=== PATIENT | female | born 1985 | race Caucasian/White ===

== ENCOUNTER 2020-02-16 13:42 | Emergency (ER) | payer OTHER ==
[~2020-02-16] VITALS: Ht 180.3 cm; Wt 100.0 kg
[2020-02-16] MEDS ORDERED: SODIUM CHLORIDE 0.9% 1,000 ML IV ONE (15:00)
[2020-02-16] MEDS ORDERED: LORazepam 1 MG TABLET PO ONE (15:45)
[2020-02-16 15:49] LABS: BASOPHILS % (AUTO) 0.2 % (0.0-2.0); EOSINOPHILS % (AUTO) 0.6 % (1.0-6.0); HEMATOCRIT 48.2 % (36-46); HEMOGLOBIN 16.5 g/dL (12.0-16.0); LYMPHOCYTES # (AUTO) 3.1 K/uL (1.0-4.8); LYMPHOCYTES % (AUTO) 34.7 % (22.0-44.0); MEAN CORPUSCULAR HEMOGLOBIN 31.3 pg (26.0-34.0); MEAN CORPUSCULAR HGB CONC 34.3 G/dL (31.0-37.0); MEAN CORPUSCULAR VOLUME 91 fL (80-100); MONOCYTES # (AUTO) 0.6 K/uL (0.1-1.0); MONOCYTES % (AUTO) 6.6 % (2.0-9.0); NEUTROPHILS # (AUTO) 5.1 K/uL (1.8-7.7); NEUTROPHILS % (AUTO) 57.9 % (40.0-70.0); PLATELET COUNT (AUTO) 314 K/uL (150-450); RED BLOOD CELL COUNT(AUTO) 5.29 MIL/uL (4.00-5.20); RED CELL DISTRIBUTION WIDTH 14.8 % (11.5-14.5)
[2020-02-16 15:49] LABS: AMPHET/METH SCREEN,URINE NEGATIVE (NEGATIVE); BARBITURATE SCREEN, URINE NEGATIVE (NEGATIVE); BENZODIAZEPINES SCREEN,URINE POSITIVE (NEGATIVE); CANNABINOID SCREEN,URINE NEGATIVE (NEGATIVE); COCAINE SCREEN,URINE NEGATIVE (NEGATIVE); METHADONE SCREEN, URINE NEGATIVE (NEGATIVE); OPIATE SCREEN,URINE NEGATIVE (NEGATIVE)
[2020-02-16 15:50] LABS: APPEARANCE,URINE CLOUDY (CLEAR); BILIRUBIN,URINE NEGATIVE (NEGATIVE); GLUCOSE, URINE (UA) NEGATIVE (NEGATIVE); KETONES,URINE NEGATIVE (NEGATIVE); LEUKOCYTE ESTERASE ,URINE NEGATIVE (NEGATIVE); NITRATE,URINE NEGATIVE (NEGATIVE); OCCULT BLOOD,URINE SMALL (NEGATIVE); PH,URINE 6.5 (5.0-8.0); PROTEIN,URINE NEGATIVE (NEGATIVE)
[2020-02-16 15:59] LABS: RBC,URINE 0-2 /HPF (0-2); WBC,URINE None Seen /HPF (0-5)
[2020-02-16 16:00] LABS: AMORPHOUS SEDIMENT,UR Few /LPF (None Seen); BACTERIA,URINE Moderate /HPF (None Seen); SQUAMOUS EPITHELIAL CELL,UR Moderate /LPF (None Seen)
[2020-02-16 16:04] LABS: PHENCYCLIDINE SCREEN,URINE NEGATIVE (NEGATIVE)
[2020-02-16 16:12] LABS: ALANINE AMINOTRANSFERASE 29 U/L (12-78); ALBUMIN 3.7 g/dL (3.4-5.0); ALKALINE PHOSPHATASE 82 U/L (46-116); ANION GAP 10 mmol/L (8-16); ASPARTATE AMINOTRANSFERASE 37 U/L (15-37); BILIRUBIN,TOTAL 0.6 mg/dL (0.1-1.0); CALCIUM, TOTAL 8.4 mg/dL (8.8-10.5); CARBON DIOXIDE 29 mmol/L (22-29); CHLORIDE 107 mmol/L (98-107); CREATININE 0.81 mg/dL (0.60-1.30); GLOMERULAR FILTR. RATE CALC > 60 mL/min (>60); GLUCOSE,RANDOM 101 mg/dL (70-110); SODIUM SERUM 146 mmol/L (136-145); TOTAL PROTEIN, SERUM 7.7 g/dL (6.4-8.2); UREA NITROGEN, BLOOD 14 mg/dL (7-18)
[2020-02-16 16:15] LABS: POTASSIUM 2.9 mmol/L (3.5-5.1)
[2020-02-16] MEDS ORDERED: MAGNESIUM SULFATE 2 GM, MVI, ADULT NO.1 WITH VIT K 10 ML, THIAMINE 100 MG, FOLIC ACID 1... IV ONE ×5 (16:15)
[2020-02-16] MEDS ORDERED: POTASSIUM CHLORIDE 20 MEQ ER TABLET PO ONE (16:30)
[2020-02-16] MEDS ORDERED: ONDANSETRON HCL 4 MG/2 ML VIAL IVP ONE (16:30)
[2020-02-16 19:11] VITALS: BP 133/69
== END 2020-02-16 20:05 | disposition home or self-care (01) ==
LOC: EMS 13:47
DX: F10.239 Alcohol dependence with withdrawal, unspecified (principal); Z88.0 Allergy status to penicillin; Y90.8 Blood alcohol level of 240 mg/100 ml or more
CPT/HCPCS: 36415; 80053; 80307; 81001; 85025; 87086; 93005; 96365; 96366; 96375; 99284; G0480; J2405; J3411; J3475; J3490 ×2; J7030

== ENCOUNTER 2020-02-26 00:30 | Emergency (ER) | payer OTHER ==
[~2020-02-26] VITALS: Ht 182.9 cm; Wt 104.5 kg
[2020-02-26 00:50] VITALS: BP 132/79
== END 2020-02-26 02:13 | disposition home or self-care (01) ==
LOC: EMS 00:31
DX: F10.239 Alcohol dependence with withdrawal, unspecified (principal); I10 Essential (primary) hypertension; F17.210 Nicotine dependence, cigarettes, uncomplicated; Z88.0 Allergy status to penicillin
CPT/HCPCS: 99406

== ENCOUNTER 2020-03-05 20:48 | Inpatient (IN) | payer MEDICAID, OTHER ==
[~2020-03-05] VITALS: Ht 182.9 cm; Wt 106.5 kg
[2020-03-05 22:13] LABS: BASOPHILS % (AUTO) 0.5 % (0.0-2.0); EOSINOPHILS % (AUTO) 0.3 % (1.0-6.0); HEMATOCRIT 50.5 % (36-46); LYMPHOCYTES # (AUTO) 2.6 K/uL (1.0-4.8); LYMPHOCYTES % (AUTO) 49.6 % (22.0-44.0); MEAN CORPUSCULAR HEMOGLOBIN 30.6 pg (26.0-34.0); MEAN CORPUSCULAR HGB CONC 33.6 G/dL (31.0-37.0); MEAN CORPUSCULAR VOLUME 91 fL (80-100); MONOCYTES # (AUTO) 0.4 K/uL (0.1-1.0); MONOCYTES % (AUTO) 6.8 % (2.0-9.0); NEUTROPHILS # (AUTO) 2.2 K/uL (1.8-7.7); NEUTROPHILS % (AUTO) 42.8 % (40.0-70.0); PLATELET COUNT (AUTO) 159 K/uL (150-450); RED BLOOD CELL COUNT(AUTO) 5.55 MIL/uL (4.00-5.20); RED CELL DISTRIBUTION WIDTH 14.8 % (11.5-14.5)
[2020-03-05 22:31] LABS: ANION GAP 5 mmol/L (8-16); CALCIUM, TOTAL 8.5 mg/dL (8.8-10.5); CARBON DIOXIDE 32 mmol/L (22-29); CHLORIDE 103 mmol/L (98-107); CREATININE 1.02 mg/dL (0.60-1.30); GLOMERULAR FILTR. RATE CALC > 60 mL/min (>60); GLUCOSE,RANDOM 97 mg/dL (70-110); POTASSIUM 3.7 mmol/L (3.5-5.1); SODIUM SERUM 140 mmol/L (136-145); UREA NITROGEN, BLOOD 12 mg/dL (7-18)
[2020-03-05 22:39] LABS: AMPHET/METH SCREEN,URINE NEGATIVE (NEGATIVE); BARBITURATE SCREEN, URINE NEGATIVE (NEGATIVE); BENZODIAZEPINES SCREEN,URINE POSITIVE (NEGATIVE); CANNABINOID SCREEN,URINE NEGATIVE (NEGATIVE); COCAINE SCREEN,URINE NEGATIVE (NEGATIVE); METHADONE SCREEN, URINE NEGATIVE (NEGATIVE); OPIATE SCREEN,URINE NEGATIVE (NEGATIVE); PHENCYCLIDINE SCREEN,URINE NEGATIVE (NEGATIVE)
[2020-03-05 22:41] LABS: ALANINE AMINOTRANSFERASE 135 U/L (12-78); ALBUMIN 3.8 g/dL (3.4-5.0); ALKALINE PHOSPHATASE 163 U/L (46-116); ASPARTATE AMINOTRANSFERASE 171 U/L (15-37); BILIRUBIN,TOTAL 1.3 mg/dL (0.1-1.0); HCG,QUANTITATIVE < 1 mIU/mL (0-6); TOTAL PROTEIN, SERUM 7.8 g/dL (6.4-8.2)
[2020-03-05] MEDS ORDERED: QUEtiapine FUMARATE 100 MG TABLET PO PRN (23:15)
[2020-03-05] MEDS ORDERED: ZOLPIDEM TARTRATE 10 MG TABLET PO PRN (23:15)
[2020-03-05 23:44] LABS: APPEARANCE,URINE CLEAR (CLEAR); BILIRUBIN,URINE NEGATIVE (NEGATIVE); GLUCOSE, URINE (UA) NEGATIVE (NEGATIVE); KETONES,URINE NEGATIVE (NEGATIVE); LEUKOCYTE ESTERASE ,URINE NEGATIVE (NEGATIVE); NITRATE,URINE NEGATIVE (NEGATIVE); OCCULT BLOOD,URINE NEGATIVE (NEGATIVE); PROTEIN,URINE NEGATIVE (NEGATIVE); UROBILINOGEN,URINE 0.2 mg/dL (<=1.0)
[2020-03-06] VITALS (8 sets, daily range): BP systolic 136–144; BP diastolic 75–96
[2020-03-06] MEDS: LORazepam 2 MG TABLET PO PRN ×2 (00:05→06:28)
[2020-03-06] MEDS ORDERED: GuaiFENesin/D-METHORPHAN [SUGAR-FREE] 200-20MG/10 ML SYRUP UDCUP PO PRN (08:15)
[2020-03-06] MEDS ORDERED: ONDANSETRON HCL 4 MG TABLET PO PRN (08:15)
[2020-03-06] MEDS ORDERED: ACETAMINOPHEN 325 MG TABLET PO PRN (08:15)
[2020-03-06] MEDS ORDERED: MAGNESIUM HYDROXIDE SUSPENSION 30 ML UDCUP PO PRN (08:15)
[2020-03-06] MEDS ORDERED: IBUPROFEN 400 MG TABLET PO PRN (08:15)
[2020-03-06] MEDS ORDERED: DOCUSATE SODIUM 100 MG CAPSULE PO PRN (08:15)
[2020-03-06] MEDS ORDERED: ALBUTEROL SULFATE HFA 90 MCG/PUFF 8 GM INHALER IH PRN (08:15)
[2020-03-06] MEDS ORDERED: NICOTINE 14 MG/24 HOUR PATCH TD PRN (08:15)
[2020-03-06] MEDS ORDERED: CloNIDine HCL 0.1 MG TABLET PO PRN (08:15)
[2020-03-06] MEDS ORDERED: PETROLATUM,WHITE 28 GM JELLY TP PRN (08:15)
[2020-03-06] MEDS ORDERED: MAG HYDROX/AL HYDROX/SIMETH ES 30 ML SUSPENSION UDCUP PO PRN (08:15)
[2020-03-06] MEDS ORDERED: LOPERAMIDE HCL 2 MG CAPSULE PO PRN (08:15)
[2020-03-06] MEDS: MULTIVITAMINS, THERAPEUTIC TABLET PO SCH (08:44)
[2020-03-06] MEDS: NICOTINE 14 MG/24 HOUR PATCH TD SCH (08:45)
[2020-03-06] MEDS: FOLIC ACID 1 MG TABLET PO SCH (08:45)
[2020-03-06] MEDS: LORazepam 2 MG TABLET PO SCH ×4 (08:45→20:30)
[2020-03-06] MEDS: THIAMINE 100 MG TABLET PO SCH (08:45)
[2020-03-06 08:49] LABS: CHOL/HDL RATIO 4.1 (3.9-5.7); CHOLESTEROL 114 mg/dL (131-200); HDL CHOLESTEROL 28 mg/dL (40-60); TRIGLYCERIDES 579 mg/dL (15-150)
[2020-03-06] MEDS: SERTRALINE HCL 50 MG TABLET PO SCH (16:50)
[2020-03-06] MEDS: SIMVASTATIN 20 MG TABLET PO SCH (20:30)
[2020-03-06] MEDS ORDERED: CYCLOBENZAPRINE HCL 10 MG TABLET PO PRN (22:00)
[2020-03-07 01:00] VITALS: BP 136/78
[2020-03-07] MEDS: LORazepam 2 MG TABLET PO PRN (01:54)
[2020-03-07 05:00] VITALS: BP 135/80
[2020-03-07 08:12] LABS: ANION GAP 7 mmol/L (8-16); CALCIUM, TOTAL 8.1 mg/dL (8.8-10.5); CARBON DIOXIDE 28 mmol/L (22-29); CHLORIDE 104 mmol/L (98-107); CREATININE 0.82 mg/dL (0.60-1.30); GLOMERULAR FILTR. RATE CALC > 60 mL/min (>60); GLUCOSE,RANDOM 122 mg/dL (70-110); SODIUM SERUM 139 mmol/L (136-145); UREA NITROGEN, BLOOD 8 mg/dL (7-18)
[2020-03-07 08:17] LABS: POTASSIUM 2.9 mmol/L (3.5-5.1)
[2020-03-07 08:23] VITALS: BP_SYST 132; BP_DIAS 82; BP_DIAS 83
[2020-03-07] MEDS ORDERED: POTASSIUM CHLORIDE 20 MEQ ER TABLET PO ONE (08:30)
[2020-03-07] MEDS: SERTRALINE HCL 50 MG TABLET PO SCH (08:53)
[2020-03-07] MEDS: FOLIC ACID 1 MG TABLET PO SCH (08:53)
[2020-03-07] MEDS: LORazepam 2 MG TABLET PO SCH ×4 (08:53→20:11)
[2020-03-07] MEDS: MULTIVITAMINS, THERAPEUTIC TABLET PO SCH (08:54)
[2020-03-07] MEDS: NICOTINE 14 MG/24 HOUR PATCH TD SCH (08:54)
[2020-03-07] MEDS: THIAMINE 100 MG TABLET PO SCH (08:54)
[2020-03-07 16:10] VITALS: BP 132/89
[2020-03-07] MEDS: SIMVASTATIN 20 MG TABLET PO SCH (20:11)
[2020-03-07 21:15] VITALS: BP 132/89
[2020-03-08 00:50] VITALS: BP 140/89
[2020-03-08] MEDS: LORazepam 2 MG TABLET PO PRN (03:07)
[2020-03-08 08:30] VITALS: BP 110/71
[2020-03-08] MEDS: LORazepam 1 MG TABLET PO SCH ×4 (08:43→20:15)
[2020-03-08] MEDS: MULTIVITAMINS, THERAPEUTIC TABLET PO SCH (08:43)
[2020-03-08] MEDS: FOLIC ACID 1 MG TABLET PO SCH (08:43)
[2020-03-08] MEDS: THIAMINE 100 MG TABLET PO SCH (08:44)
[2020-03-08] MEDS: NICOTINE 21 MG/24 HOUR PATCH TD SCH (08:49)
[2020-03-08 09:00] VITALS: BP 110/71
[2020-03-08] MEDS ORDERED: POTASSIUM CHLORIDE 20 MEQ ER TABLET PO ONE (09:00)
[2020-03-08] MEDS: SERTRALINE HCL 50 MG TABLET PO SCH (09:56)
[2020-03-08 18:19] VITALS: BP 118/78
[2020-03-08] MEDS: SIMVASTATIN 20 MG TABLET PO SCH (20:15)
[2020-03-09 00:32] VITALS: BP 125/76
[2020-03-09] MEDS: LORazepam 1 MG TABLET PO PRN ×2 (00:45→04:32)
[2020-03-09 01:05] VITALS: BP 125/76
[2020-03-09] MEDS ORDERED: LORazepam 1 MG TABLET PO PRN (07:00)
[2020-03-09] MEDS: NICOTINE 21 MG/24 HOUR PATCH TD SCH (09:51)
[2020-03-09] MEDS: SERTRALINE HCL 50 MG TABLET PO SCH (09:51)
[2020-03-09] MEDS: MULTIVITAMINS, THERAPEUTIC TABLET PO SCH (09:52)
[2020-03-09] MEDS: FOLIC ACID 1 MG TABLET PO SCH (09:52)
[2020-03-09] MEDS: THIAMINE 100 MG TABLET PO SCH (09:52)
[2020-03-09] MEDS ORDERED: SIMV-260 PO (10:34)
[2020-03-09] MEDS ORDERED: SERT100T12 PO (10:34)
== END 2020-03-09 12:50 | disposition home or self-care (01) | DRG 885 ==
LOC: EMS 20:50 → B3A 23:02
DX: F33.2 Major depressive disorder, recurrent severe without psychotic features (principal); R45.851 Suicidal ideations; Z59.0 Homelessness; Z88.0 Allergy status to penicillin; F10.20 Alcohol dependence, uncomplicated; E78.5 Hyperlipidemia, unspecified; I10 Essential (primary) hypertension; F19.10 Other psychoactive substance abuse, uncomplicated; R74.0 Nonspecific elevation of levels of transaminase and lactic acid dehydrogenase [LDH]; F41.9 Anxiety disorder, unspecified; F17.200 Nicotine dependence, unspecified, uncomplicated; E87.6 Hypokalemia; Z79.899 Other long term (current) drug therapy; Y90.7 Blood alcohol level of 200-239 mg/100 ml; Z91.5 Personal history of self-harm
CPT/HCPCS: 84132; G0480

== ENCOUNTER 2023-02-06 18:39 | Emergency (ER) | payer MEDICAID, OTHER ==
[~2023-02-06] VITALS: Ht 182.9 cm; Wt 109.0 kg
[2023-02-06 18:39] VITALS: TEMP 98.2
[~2023-02-06 18:39] MED LIST: SERT-162 PO; SIMV-260 PO
[2023-02-06] MEDS ORDERED: BUSP15 PO (18:45)
[2023-02-06] MEDS ORDERED: CITA-144 PO (18:45)
[2023-02-06] MEDS ORDERED: ONDA-104 PO (18:45)
[2023-02-06] MEDS ORDERED: MIRT-89 PO (18:45)
[2023-02-06] MEDS ORDERED: GABA-1201 PO (18:45)
[2023-02-06 20:12] LABS: BASOPHILS % (AUTO) 0.5 % (0.0-2.0); EOSINOPHILS % (AUTO) 0.2 % (1.0-6.0); HEMATOCRIT 46.9 % (36-46); HEMOGLOBIN 15.7 g/dL (12.0-16.0); LYMPHOCYTES # (AUTO) 2.3 K/uL (1.0-4.8); LYMPHOCYTES % (AUTO) 38.9 % (22.0-44.0); MEAN CORPUSCULAR HEMOGLOBIN 30.5 pg (26.0-34.0); MEAN CORPUSCULAR HGB CONC 33.5 G/dL (31.0-37.0); MEAN CORPUSCULAR VOLUME 91 fL (80-100); MONOCYTES # (AUTO) 0.3 K/uL (0.1-1.0); MONOCYTES % (AUTO) 5.4 % (2.0-9.0); NEUTROPHILS # (AUTO) 3.2 K/uL (1.8-7.7); PLATELET COUNT (AUTO) 219 K/uL (150-450); RED BLOOD CELL COUNT(AUTO) 5.15 MIL/uL (4.00-5.20); RED CELL DISTRIBUTION WIDTH 13.8 % (11.5-14.5)
[2023-02-06 20:25] LABS: ANION GAP 12 mmol/L (8-16); CALCIUM, TOTAL 8.5 mg/dL (8.8-10.5); CARBON DIOXIDE 27 mmol/L (22-29); CHLORIDE 104 mmol/L (98-107); CREATININE 0.79 mg/dL (0.60-1.30); GLOMERULAR FILTR. RATE CALC > 60 mL/min (>60); GLUCOSE,RANDOM 97 mg/dL (70-110); POTASSIUM 3.8 mmol/L (3.5-5.1); SODIUM SERUM 143 mmol/L (136-145)
[2023-02-06 20:32] LABS: ALANINE AMINOTRANSFERASE 40 U/L (12-78); ALBUMIN 4.2 g/dL (3.4-5.0); ALKALINE PHOSPHATASE 96 U/L (46-116); ASPARTATE AMINOTRANSFERASE 56 U/L (15-37); BILIRUBIN,TOTAL 0.6 mg/dL (0.1-1.0); TOTAL PROTEIN, SERUM 8.1 g/dL (6.4-8.2)
[2023-02-06 20:40] VITALS: BP 143/103; PULSE 115; RESP 16
[2023-02-06 21:17] LABS: COVID AG,FIA SOURCE NASOPHARYNGEAL
[2023-02-06 21:26] LABS: AMPHET/METH SCREEN,URINE NEGATIVE (NEGATIVE); BARBITURATE SCREEN, URINE NEGATIVE (NEGATIVE); BENZODIAZEPINES SCREEN,URINE POSITIVE (NEGATIVE); CANNABINOID SCREEN,URINE POSITIVE (NEGATIVE); COCAINE SCREEN,URINE NEGATIVE (NEGATIVE); METHADONE SCREEN, URINE NEGATIVE (NEGATIVE); OPIATE SCREEN,URINE NEGATIVE (NEGATIVE); PHENCYCLIDINE SCREEN,URINE NEGATIVE (NEGATIVE)
== END 2023-02-06 22:30 | disposition home or self-care (01) ==
LOC: EMS 18:46
DX: F32.9 Major depressive disorder, single episode, unspecified (principal); R45.851 Suicidal ideations; F10.229 Alcohol dependence with intoxication, unspecified; F41.9 Anxiety disorder, unspecified; E78.00 Pure hypercholesterolemia, unspecified; I10 Essential (primary) hypertension; F17.210 Nicotine dependence, cigarettes, uncomplicated; Z88.0 Allergy status to penicillin; Z20.822 Contact with and (suspected) exposure to COVID-19; Y90.9 Presence of alcohol in blood, level not specified
CPT/HCPCS: 99284; 87426; 80053; 84703; 85025; 36415; 80307; G0480; 99285

== ENCOUNTER 2023-02-07 14:00 | Inpatient (IN) | payer MEDICAID ==
[~2023-02-07] VITALS: Ht 180.3 cm; Wt 107.5 kg
[~2023-02-07 14:00] MED LIST changes: +BUSP15 PO; +CITA-144 PO; +GABA-1201 PO; +MIRT-89 PO; +ONDA-104 PO
[2023-02-07] MEDS ORDERED: HALOPERIDOL 5 MG TABLET PO PRN (16:15)
[2023-02-07 17:30] LABS: GLUCOMETER DEV NAME(LOC) POC.BV
[2023-02-07 17:40] VITALS: BP 142/96; PULSE 102; RESP 18; TEMP 97.9; O2SAT 95
[2023-02-07 18:00] VITALS: BP 118/66; PULSE 101; RESP 18; TEMP 98; O2SAT 97
[2023-02-07] MEDS ORDERED: ACETAMINOPHEN 325 MG TABLET PO PRN (18:00)
[2023-02-07] MEDS ORDERED: ONDANSETRON HCL 4 MG TABLET PO PRN (18:00)
[2023-02-07] MEDS ORDERED: ALBUTEROL SULFATE HFA 90 MCG/PUFF 8 GM INHALER IH PRN (18:00)
[2023-02-07] MEDS ORDERED: OMEPRAZOLE 20 MG CAPSULE PO PRN (18:00)
[2023-02-07] MEDS ORDERED: MAGNESIUM HYDROXIDE SUSPENSION 30 ML UDCUP PO PRN (18:00)
[2023-02-07] MEDS ORDERED: LOPERAMIDE HCL 2 MG CAPSULE PO PRN (18:00)
[2023-02-07] MEDS ORDERED: BACITRACIN 28 GM OINTMENT TP PRN (18:00)
[2023-02-07] MEDS ORDERED: IBUPROFEN 600 MG TABLET PO PRN (18:00)
[2023-02-07] MEDS ORDERED: PETROLATUM,WHITE 28 GM JELLY TP PRN (18:00)
[2023-02-07] MEDS ORDERED: BENZOCAINE/MENTHOL LOZENGE PO PRN (18:00)
[2023-02-07] MEDS ORDERED: MAG HYDROX/AL HYDROX/SIMETH ES 30 ML SUSPENSION UDCUP PO PRN (18:00)
[2023-02-07] MEDS ORDERED: CloNIDine HCL 0.1 MG TABLET PO PRN (18:00)
[2023-02-07] MEDS ORDERED: DOCUSATE SODIUM 100 MG CAPSULE PO PRN (18:00)
[2023-02-07 19:30] VITALS: BP 138/85; PULSE 100; RESP 18; TEMP 98.1; O2SAT 97
[2023-02-07 20:35] VITALS: BP 126/76; PULSE 99; RESP 17; TEMP 98; O2SAT 96
[2023-02-07] MEDS: ZOLPIDEM TARTRATE 10 MG TABLET PO PRN (21:46)
[2023-02-07] MEDS: LORazepam 2 MG TABLET PO PRN (21:46)
[2023-02-07 22:23] VITALS: BP 138/85; PULSE 100; RESP 18; TEMP 98.1; O2SAT 97
[2023-02-07 23:23] VITALS: BP 109/69; PULSE 98; RESP 18; TEMP 97.8; O2SAT 95
[2023-02-08] VITALS (10 sets, daily range): BP systolic 120–156; BP diastolic 72–92; PULSE 87–104; RESP 18; TEMP 97–98.2; O2SAT 96–99
[2023-02-08] MEDS: LORazepam 2 MG TABLET PO PRN (05:45)
[2023-02-08 07:36] LABS: BASOPHILS % (AUTO) 0.9 % (0.0-2.0); EOSINOPHILS % (AUTO) 0.4 % (1.0-6.0); HEMATOCRIT 42.2 % (36-46); HEMOGLOBIN 14.7 g/dL (12.0-16.0); LYMPHOCYTES # (AUTO) 1.2 K/uL (1.0-4.8); LYMPHOCYTES % (AUTO) 24.2 % (22.0-44.0); MEAN CORPUSCULAR HEMOGLOBIN 31.4 pg (26.0-34.0); MEAN CORPUSCULAR HGB CONC 34.7 G/dL (31.0-37.0); MEAN CORPUSCULAR VOLUME 91 fL (80-100); MONOCYTES # (AUTO) 0.4 K/uL (0.1-1.0); MONOCYTES % (AUTO) 8.5 % (2.0-9.0); NEUTROPHILS # (AUTO) 3.4 K/uL (1.8-7.7); PLATELET COUNT (AUTO) 175 K/uL (150-450); RED BLOOD CELL COUNT(AUTO) 4.66 MIL/uL (4.00-5.20); RED CELL DISTRIBUTION WIDTH 13.9 % (11.5-14.5)
[2023-02-08 08:03] LABS: ALANINE AMINOTRANSFERASE 35 U/L (12-78); ALBUMIN 3.7 g/dL (3.4-5.0); ALKALINE PHOSPHATASE 93 U/L (46-116); ANION GAP 11 mmol/L (8-16); ASPARTATE AMINOTRANSFERASE 47 U/L (15-37); BILIRUBIN,TOTAL 1.3 mg/dL (0.1-1.0); CARBON DIOXIDE 26 mmol/L (22-29); CHLORIDE 100 mmol/L (98-107); CHOL/HDL RATIO 1.6 (3.9-5.7); CHOLESTEROL 231 mg/dL (131-200); FREE T4 (FREE THYROXINE) 0.77 ng/dL (0.76-1.46); GLOMERULAR FILTR. RATE CALC > 60 mL/min (>60); GLUCOSE,RANDOM 101 mg/dL (70-110); HCG,QUANTITATIVE < 1 mIU/mL (0-6); HDL CHOLESTEROL 144 mg/dL (40-60); LDL CHOL (CALC.) 69 mg/dL (0-130); POTASSIUM 3.3 mmol/L (3.5-5.1); SODIUM SERUM 137 mmol/L (136-145); THYROID STIMULATING HORMONE 2.36 uIU/mL (0.36-3.74); TOTAL PROTEIN, SERUM 7.4 g/dL (6.4-8.2); TRIGLYCERIDES 88 mg/dL (15-150)
[2023-02-08] MEDS: CITALOPRAM HYDROBROMIDE 20 MG TABLET PO SCH (13:27)
[2023-02-08] MEDS: BusPIRone HCL 15 MG TABLET PO SCH (13:27)
[2023-02-08] MEDS: GABAPENTIN 400 MG CAPSULE PO SCH ×3 (13:27→20:32)
[2023-02-08] MEDS ORDERED: MIRTAZAPINE 15 MG TABLET PO SCH (21:00)
[2023-02-09] MEDS: ZOLPIDEM TARTRATE 10 MG TABLET PO PRN (00:19)
[2023-02-09 07:00] VITALS: BP 140/70; PULSE 95; RESP 17; TEMP 97.7; O2SAT 98
[2023-02-09 08:16] VITALS: BP 140/73; PULSE 76; RESP 18; TEMP 97.7; O2SAT 96
[2023-02-09] MEDS: CITALOPRAM HYDROBROMIDE 20 MG TABLET PO SCH (08:33)
[2023-02-09] MEDS: BusPIRone HCL 15 MG TABLET PO SCH (08:33)
[2023-02-09] MEDS: GABAPENTIN 400 MG CAPSULE PO SCH ×2 (08:33→12:30)
== END 2023-02-09 17:38 | disposition home or self-care (01) | DRG 753 ==
LOC: B2S 14:00
PROVIDERS: ADMIT Psychiatry & Neurology Psychiatry; ATTEND Psychiatry & Neurology Psychiatry
DX: F31.9 Bipolar disorder, unspecified (principal); E87.6 Hypokalemia; F41.9 Anxiety disorder, unspecified; G47.00 Insomnia, unspecified; Z20.822 Contact with and (suspected) exposure to COVID-19; F17.210 Nicotine dependence, cigarettes, uncomplicated; K59.00 Constipation, unspecified; Z88.0 Allergy status to penicillin
CPT/HCPCS: 80053; 80061; 83036; 84439; 84443; 84702; 85025; G0480